=== PATIENT | female | born 1955 | race Caucasian/White ===

== ENCOUNTER 2021-09-13 18:42 | Inpatient (IN) | payer BC ==
[~2021-09-13] VITALS: Ht 172.7 cm; Wt 90.1 kg
[2021-09-13 19:50] VITALS: BP 97/49
[2021-09-13] MEDS ORDERED: ONDANSETRON PF 4 MG/2 ML VIAL. IVP PRN (20:15)
[2021-09-13] MEDS ORDERED: ACETAMINOPHEN 325 MG TABLET. PO PRN (20:15)
[2021-09-13] MEDS ORDERED: PIP/TAZO PER PHARMACY MC PRN (20:15)
[2021-09-13] MEDS ORDERED: VANCOMYCIN 2 GM in IV NORMAL SALINE 500ML BAG 500 ML IV ONE (21:00)
[2021-09-13] MEDS: PIPERACILLIN/TAZOBACTAM 4.5 GM in IV NORMAL SALINE 100ML 100 ML IV SCH (22:11)
[2021-09-13] MEDS: IV NORMAL SALINE 1000ML BAG 1,000 ML IV SCH (23:45)
[2021-09-13] MEDS ORDERED: METO25TA4 PO (23:53)
[2021-09-13] MEDS ORDERED: CALC500T30 PO (23:53)
[2021-09-13] MEDS ORDERED: CIME200T18 PO (23:53)
[2021-09-13] MEDS ORDERED: MAGN400C PO (23:53)
[2021-09-13] MEDS ORDERED: MULT-477 PO (23:53)
[2021-09-13] MEDS ORDERED: LEVO100T5 PO (23:53)
[2021-09-13] MEDS ORDERED: ASPI-630 PO (23:53)
[2021-09-14] VITALS (13 sets, daily range): BP systolic 85–111; BP diastolic 42–57
[2021-09-14] MEDS: MORPHINE SULFATE 2 MG/ML INJ. IVP PRN ×2 (00:54→20:49)
[2021-09-14] MEDS: VANCOMYCIN PER PHARMACY MC PRN ×2 (02:27→17:27)
--- NOTE | 2021-09-14 02:27 | NUR ---
Pharmacy Vancomycin Dosing Note S:Consulted to monitor and dose vancomycin started 09/13/21. O:YULIYA SELF is a 65 year old F with RUPTURED APPENDIX . Height: 5 feet, 8 inches Weight: 85.5 kg [place] Body Weight: 63.90 Adjusted Body Weight: 72.54 Dosing Weight: Other Antibiotics: ZOSYN 4.5 Q8H LABS: Last BUN: 16 Last Creatinine: 1.1 Creatinine Clearance: 59 mL/min Last WBC: 20.7 Last Procalcitonin: Tmax (past 24 hours): Microbiology: I/O: Drug Levels: Last level: on at Last dose given 09/13/21 at 2100 Vancomycin Dosing: Loading Dose: 2000 mg x1 Dosing Weight: Target Trough: 15-20 A: Based on: WT AND CRCL P: 1. Begin Vancomycin 1250 mg IV q12h 2. Follow up Trough level on 09/15/21 at 0830 3. Pharmacy will continue to monitor, follow and adjust therapy as needed. JOSEFINA GONZALEZ RPH, 09/14/21226 Signed: 09/14/21 at 227 by JOSEFINA GONZALEZ RPH PHA
[2021-09-14] MEDS: PIPERACILLIN/TAZOBACTAM 4.5 GM in IV NORMAL SALINE 100ML 100 ML IV SCH ×3 (06:24→20:50)
--- NOTE | 2021-09-14 08:42 | PDOC1 ---
History and Physical Date of Service: DOS: DATE: 09/14/21 TIME: 08:40 Chief Complaint: Problems: (1) Ruptured appendix Chief Complain: Abdominal pain History of Present Illness: HPI: Patient is a 65-year-old white female presented to outside emergency room yesterday due to 5 days worsening abdominal pain. Patient reports that Saturday she started feeling very gassy in the evening the next day abdominal pain eventually localized to the right lower quadrant. Also started having fever chills diarrhea during that time. Patient reports that she mostly slept Saturday. Pain was still present and sort of go away and come back intermittently. Reported that yesterday she also had a fair bit more vomiting. With that ongoing pain presented emergency room yesterday found to have a temperature of 102. CT scan performed showed findings indicative of ruptured appendicitis with early abscess formation. She received doses of cefepime and Flagyl there. With the findings on imaging is recommended she transferred here for surgical evaluation. I evaluated the patient this morning she was resting in bed and appears comfort able. Told me the pain was tolerable at this time. Overnight she received 2 doses of vancomycin and Zosyn. Plan to continue just Zosyn for now. She was reporting generalized unwell feeling and abdominal pain. Otherwise she is denying sort of headache vision changes chest pain shortness of breath dysuria joint pain. Past Medical/Surgical History: PMH/PSH: Hypothyroidism, rapid heart rate Allergies: Allergies: Coded Allergies: No Known Drug Allergies (Unverified , 09/13/21) Family History: Family History: Reviewed with patient endorse hypothyroidism in the family Social History: Social History: Denies alcohol tobacco or drug use Current Medications: Current Medications Current Medications Piperacillin Sod/ Tazobactam Sod (Zosyn Per Pharmacy) 1 each PRN DAILY PRN MC SEE COMMENTS; Start 09/13/21 at 20:15 Vancomycin HCl (Vanco Per Pharmacy) 1 each PRN DAILY PRN MC SEE COMMENTS Last administered on 09/14/21at 02:27; Start 09/13/21 at 20:15 Morphine Sulfate (Morphine Sulfate) 2 mg PRN Q2HR PRN IVP PAIN Last administered on 09/14/21at 00:54; Start 09/13/21 at 20:15 Ondansetron HCl (Zofran) 4 mg PRN Q6HRS PRN IVP NAUSEA/VOMITING; Start 09/13/21 at 20:15 Acetaminophen (Tylenol) 650 mg PRN Q6HRS PRN PO MILD PAIN / TEMP > 100.3'F; Start 09/13/21 at 20:15 Piperacillin Sod/ Tazobactam Sod 4.5 gm/Sodium Chloride 100 ml @ 200 mls/hr Q8HRS IV Last administered on 09/14/21at 06:24; Start 09/13/21 at 22:00 Vancomycin HCl 2 gm/Sodium Chloride 500 ml @ 250 mls/hr 1X ONCE IV Last administered on 09/13/21at 21:00; Start 09/13/21 at 21:00; Stop 09/13/21 at 22:59; Status DC Sodium Chloride 1,000 ml @ 75 mls/hr [id number] IV Last administered on 09/13/21at 23:45; Start 09/13/21 at 23:45 Influenza Virus Vaccine Quadrival (Flulaval Quad [id number] Syringe) 0.5 ml ONCE ONCE VAX IM ; Start 09/14/21 at 09:00; Stop 09/14/21 at 09:01 Vancomycin HCl 1.25 gm/Sodium Chloride 250 ml @ 167 mls/hr Q12H IV ; Start 09/14/21 at 09:00 Vancomycin HCl (Vancomycin Trough Level) 1 each 1X ONCE MC ; Start 09/15/21 at 08:30; Stop 09/15/21 at 08:31 Active Scripts Active Reported One Daily Multivit-Mineral Tab (Multivit-Min/Ferrous Sulfate) 4.5 Mg Tablet 4.5 Mg PO DAILY Magnesium (Magnesium Oxide) 400 Mg Capsule 1 Cap PO DAILY 30 Days Calcium (Calcium Carbonate) 500 Mg Tablet 600 Mg PO BID Aspirin 81 Mg Tab.chew 1 Tab PO DAILY Heartburn Relief (Cimetidine) 200 Mg Tablet 400 Mg PO BID Metoprolol Tartrate 25 Mg Tablet 0.5 Tab PO BID Levothyroxine Sodium 100 Mcg Tablet 1 Tab PO DAILY ROS: Review of Systems Review of System Unless noted in HPI 14 point review systems was negative Physical Exam: Vital Signs: Vital Signs Date Time Temp Pulse Resp B/P (MAP) Pulse Ox O2 Delivery O2 Flow Rate FiO2 09/14/21 03:00 73 17 85/47 (60) 96 Room Air 09/14/21 00:30 97.5 97.5 Physcial Exam: GEN: No apparent distress. Alert and oriented HEENT: Normal cephalic, atraumatic, external auditory canals are patent EYES: Extraocular muscles are intact MUSCULOSKELETAL: Well developed , well nourished, good range of motion ENDOCRINE: No thyromegaly was palpated LYMPHATICS: No cervical chain or axillary nodes were noted HEMATOPOIETIC: No bruising NECK: Supple, no JVD, no thyromegaly was noted LUNGS: Clear to auscultation in all lung myers without rhonchi or wheezing HEART: RRR, S1, S2 present. Peripheral pulses intact, no obvious murmurs noted ABDOMEN: Kind of diffusely tender overall more tender in lower quadrants. Normal bowel sounds. No apparent organomegaly EXTREMITIES: Without clubbing, cyanosis, or edema. Pedal pulses intact. NEUROLOGIC: Normal speech and tone. A&O x 3, moves all extremities, no obvious focal deficits PSYCHIATRIC: Normal affect, normal mood. Stable SKIN: No ulcerations or rashes, good skin turgor, no jaundice VASCULAR: Good capillary refill, neurovascular bundle appears to be intact Labs: Labs: Labs from outside hospital reviewed notable for leukocytosis 20.7, hemoglobin 12.9, creatinine 1.1 Assessment/Plan Assessment/Plan Acute appendicitis with perforation and peritonitis, abdominal pain, history of hypothyroidism and rapid heart rate -Plan history abdominal pain. Evaluated outside hospital yesterday showing rupt ured appendix. Sent here for intervention -Received cefepime Flagyl outside hospital. Given Vanco Zosyn here. We will continue Zosyn just for now -Planning to go for drain placement today. Please obtain cultures from abscess -Keep n.p.o. -Giving fluid bolus due to hypotension -Hold off on DVT prophylaxis for now -Home meds resumed as indicated I spent 20 minutes discussing advance care planning with this patient. Justifications for Admission Other Justification LAKESHA MENJIVAR MD Sep 14, 2021 08:42
[2021-09-14] MEDS ORDERED: IV NORMAL SALINE 1000ML BAG 1,000 ML IV ONE (08:45)
[2021-09-14 08:59] LABS: BASO % 0 % (0-3); EOS % 0 % (0-3); HEMATOCRIT 32.2 % (36.0-47.0); HEMOGLOBIN 10.6 g/dL (12.0-15.5); LYMPH # 0.5 x10^3/uL (1.0-4.8); LYMPH % 3 % (24-48); MEAN CORPUSCULAR HEMOGLOBIN 29 pg (25-35); MEAN CORPUSCULAR HGB CONC 33 g/dL (31-37); MEAN CORPUSCULAR VOLUME 90 fL (79-100); MONO # 0.9 x10^3/uL (0.0-1.1); MONO % 6 % (0-9); NEUT % 90 % (31-73); PLATELET COUNT 179 x10^3/uL (140-400); RED BLOOD COUNT 3.58 x10^6/uL (3.50-5.40); WHITE BLOOD COUNT 15.5 x10^3/uL (4.0-11.0)
[2021-09-14] MEDS ORDERED: FLU VACC QUAD 21-22 (6MOS+) PF 0.5 ML SYRINGE. VAX IM ONE (09:00)
[2021-09-14] MEDS: FAMOTIDINE 20 MG TABLET. PO SCH ×2 (09:00→20:49)
[2021-09-14] MEDS: LEVOTHYROXINE 100 MCG TABLET PO SCH (09:00)
[2021-09-14] MEDS ORDERED: VANCOMYCIN 1.25 GM in IV NORMAL SALINE 250ML 250 ML IV SCH (09:00)
[2021-09-14] MEDS ORDERED: LIDOCAINE WITH 8.4% SOD BICARB 3 ML DISP.SYRIN. ONE (09:39)
[2021-09-14] MEDS ORDERED: MIDAZOLAM HCL/PF 2 MG/2 ML VIAL. ONE (10:11)
[2021-09-14] MEDS ORDERED: fentaNYL PF VIAL 100 MCG/2 ML VIAL ONE (10:11)
[2021-09-14 10:19] LABS: % LYMPHS 6 % (24-48); % MONOS 4 % (0-10); % SEGS 90 % (35-66); PLT ESTIMATE ADEQUATE (ADEQUATE)
--- NOTE | 2021-09-14 10:24 | NUR ---
SW following. Discussed with RN, pt from home, room air, NPO. Surgery following - drain being placed today. RN advised no SW needs at this time. SW will continue to follow.
[2021-09-14] MEDS ORDERED: MIDAZOLAM HCL/PF 2 MG/2 ML VIAL. IV ONE (10:30)
[2021-09-14] MEDS ORDERED: fentaNYL PF VIAL 100 MCG/2 ML VIAL IV ONE (10:30)
[2021-09-14] MEDS ORDERED: LIDOCAINE WITH 8.4% SOD BICARB 3 ML DISP.SYRIN. IJ ONE (10:30)
[2021-09-14 12:09] LABS: CALCIUM 7.9 mg/dL (8.5-10.1); CREATININE 0.9 mg/dL (0.6-1.0); GFR 63.2; POTASSIUM 3.7 mmol/L (3.5-5.1)
--- NOTE | 2021-09-14 13:14 | PDOC2 ---
CONSULT Date of Consult Date of Consult DATE: 09/14/21 TIME: 13:09 Reason for Consult Reason for Consult: ruptured appendicitis Referring Physician Referring Physician: ER Identification/Chief Complaint Chief Complaint abd pain Source Source: Chart review, Patient History of Present Illness Reason for Visit: Abdominal pain, fatigue, ill feeling, loose stools since Saturday. was not improving. ER evaluation showed ruptured appendicitis with abscess Past Medical History Endocrine: Hypothyroidism Past Surgical History Past Surgical History: Hysterectomy Family History Family History: Other (noncontributory to current illness) Social History No ALCOHOL: none Drugs: None Lives: with Family Current Medications Current Medications Current Medications Piperacillin Sod/ Tazobactam Sod (Zosyn Per Pharmacy) 1 each PRN DAILY PRN MC SEE COMMENTS; Start 09/13/21 at 20:15 Vancomycin HCl (Vanco Per Pharmacy) 1 each PRN DAILY PRN MC SEE COMMENTS Last administered on 09/14/21at 02:27; Start 09/13/21 at 20:15 Morphine Sulfate (Morphine Sulfate) 2 mg PRN Q2HR PRN IVP PAIN Last administered on 09/14/21at 00:54; Start 09/13/21 at 20:15 Ondansetron HCl (Zofran) 4 mg PRN Q6HRS PRN IVP NAUSEA/VOMITING; Start 09/13/21 at 20:15 Acetaminophen (Tylenol) 650 mg PRN Q6HRS PRN PO MILD PAIN / TEMP > 100.3'F; Start 09/13/21 at 20:15 Piperacillin Sod/ Tazobactam Sod 4.5 gm/Sodium Chloride 100 ml @ 200 mls/hr Q8HRS IV Last administered on 09/14/21at 06:24; Start 09/13/21 at 22:00 Vancomycin HCl 2 gm/Sodium Chloride 500 ml @ 250 mls/hr 1X ONCE IV Last administered on 09/13/21at 21:00; Start 09/13/21 at 21:00; Stop 09/13/21 at 22:59; Status DC Sodium Chloride 1,000 ml @ 75 mls/hr [id number] IV Last administered on 09/13/21at 23:45; Start 09/13/21 at 23:45 Influenza Virus Vaccine Quadrival (Flulaval Quad [id number] Syringe) 0.5 ml ONCE ONCE VAX IM ; Start 09/14/21 at 09:00; Stop 09/14/21 at 09:01; Status DC Vancomycin HCl 1.25 gm/Sodium Chloride 250 ml @ 167 mls/hr Q12H IV Last administered on 09/14/21at 09:09; Start 09/14/21 at 09:00 Vancomycin HCl (Vancomycin Trough Level) 1 each 1X ONCE MC ; Start 09/15/21 at 08:30; Stop 09/15/21 at 08:31 Sodium Chloride 1,000 ml @ 1,000 mls/hr 1X ONCE IV Last administered on 09/14/21at 09:10; Start 09/14/21 at 08:45; Stop 09/14/21 at 09:44; Status DC Levothyroxine Sodium (Synthroid) 100 mcg DAILY07 PO ; Start 09/14/21 at 09:00 Famotidine (Pepcid) 20 mg BID PO ; Start 09/14/21 at 09:00 Lidocaine HCl (Buffered Lidocaine 1%) 3 ml STK-MED ONCE .ROUTE ; Start 09/14/21 at 09:39; Stop 09/14/21 at 09:39; Status DC Midazolam HCl (Versed) 2 mg STK-MED ONCE .ROUTE ; Start 09/14/21 at 10:11; Stop 09/14/21 at 10:11; Status DC Fentanyl Citrate (Fentanyl 2ml Vial) 100 mcg STK-MED ONCE .ROUTE ; Start 09/14/21 at 10:11; Stop 09/14/21 at 10:11; Status DC Lidocaine HCl (Buffered Lidocaine 1%) 3 ml 1X ONCE IJ Last administered on 09/14/21at 10:44; Start 09/14/21 at 10:30; Stop 09/14/21 at 10:31; Status DC Midazolam HCl (Versed) 2 mg 1X ONCE IV Last administered on 09/14/21at 10:43; Start 09/14/21 at 10:30; Stop 09/14/21 at 10:31; Status DC Fentanyl Citrate (Fentanyl 2ml Vial) 100 mcg 1X ONCE IV Last administered on 09/14/21at 10:43; Start 09/14/21 at 10:30; Stop 09/14/21 at 10:31; Status DC Active Scripts Active Reported One Daily Multivit-Mineral Tab (Multivit-Min/Ferrous Sulfate) 4.5 Mg Tablet 4.5 Mg PO DAILY Magnesium (Magnesium Oxide) 400 Mg Capsule 1 Cap PO DAILY 30 Days Calcium (Calcium Carbonate) 500 Mg Tablet 600 Mg PO BID Aspirin 81 Mg Tab.chew 1 Tab PO DAILY Heartburn Relief (Cimetidine) 200 Mg Tablet 400 Mg PO BID Metoprolol Tartrate 25 Mg Tablet 0.5 Tab PO BID Levothyroxine Sodium 100 Mcg Tablet 1 Tab PO DAILY Allergies Allergies: Coded Allergies: No Known Drug Allergies (Unverified , 09/13/21) ROS General: No: Chills, Fatigue PSYCHOLOGICAL ROS: No: Anxiety, Depression Eyes: No Blurry vision, No Double vision HEENT: No: Heacaches, Sore Throat Hematological and Lymphatic: No: Bleeding Problems, Blood Clots Respiratory: No: Cough, Shortness of breath Cardiovascular: No Chest Pain, No Palpitations Gastrointestinal: Yes Other (see hpi) Genitourinary: No Dysuria, No Hematuria Musculoskeletal: No Joint Pain, No Muscle Pain Neurological: No Impaired Coord/balance, No Numbness/Tingling Skin: No Pruritus, No Rash Physical Exam General: Alert, Oriented X3, Cooperative HEENT: Atraumatic, PERRLA Lungs: Clear to auscultation, Normal air movement Heart: Regular rate, Normal S1, Normal S2 Abdomen: Soft, Other (drain purulent ) Extremities: No clubbing, No cyanosis Skin: No rashes, No breakdown Neuro: Normal gait, Normal speech Psych/Mental Status: Mental status NL, Mood NL MUSCULOSKELETAL: No deformity, No swelling Vitals VITALS Vital Signs Date Time Temp Pulse Resp B/P (MAP) Pulse Ox O2 Delivery O2 Flow Rate FiO2 09/14/21 11:04 81 20 100 Nasal Cannula 2.0 09/14/21 11:02 96/53 (67) 09/14/21 07:00 97.4 97.4 Labs Labs Laboratory Tests Test 09/14/21 07:50 White Blood Count 15.5 x10^3/uL (4.0-11.0) Red Blood Count 3.58 x10^6/uL (3.50-5.40) Hemoglobin 10.6 g/dL (12.0-15.5) Hematocrit 32.2 % (36.0-47.0) Mean Corpuscular Volume 90 fL (79-100) Mean Corpuscular Hemoglobin 29 pg (25-35) Mean Corpuscular Hemoglobin Concent 33 g/dL (31-37) Red Cell Distribution Width 13.0 % (11.5-14.5) Platelet Count 179 x10^3/uL (140-400) Neutrophils (%) (Auto) 90 % (31-73) Lymphocytes (%) (Auto) 3 % (24-48) Monocytes (%) (Auto) 6 % (0-9) Eosinophils (%) (Auto) 0 % (0-3) Basophils (%) (Auto) 0 % (0-3) Neutrophils # (Auto) 14.0 x10^3/uL (1.8-7.7) Lymphocytes # (Auto) 0.5 x10^3/uL (1.0-4.8) Monocytes # (Auto) 0.9 x10^3/uL (0.0-1.1) Eosinophils # (Auto) 0.0 x10^3/uL (0.0-0.7) Basophils # (Auto) 0.0 x10^3/uL (0.0-0.2) Segmented Neutrophils % 90 % (35-66) Lymphocytes % 6 % (24-48) Monocytes % 4 % (0-10) Platelet Estimate Adequate (ADEQUATE) Sodium Level 140 mmol/L (136-145) Potassium Level 3.7 mmol/L (3.5-5.1) Chloride Level 107 mmol/L (98-107) Carbon Dioxide Level 22 mmol/L (21-32) Anion Gap 11 (6-14) Blood Urea Nitrogen 19 mg/dL (7-20) Creatinine 0.9 mg/dL (0.6-1.0) Estimated GFR (Cockcroft-Gault) 63.2 Glucose Level 84 mg/dL (70-99) Calcium Level 7.9 mg/dL (8.5-10.1) Laboratory Tests Test 09/14/21 07:50 White Blood Count 15.5 x10^3/uL (4.0-11.0) Red Blood Count 3.58 x10^6/uL (3.50-5.40) Hemoglobin 10.6 g/dL (12.0-15.5) Hematocrit 32.2 % (36.0-47.0) Mean Corpuscular Volume 90 fL (79-100) Mean Corpuscular Hemoglobin 29 pg (25-35) Mean Corpuscular Hemoglobin Concent 33 g/dL (31-37) Red Cell Distribution Width 13.0 % (11.5-14.5) Platelet Count 179 x10^3/uL (140-400) Neutrophils (%) (Auto) 90 % (31-73) Lymphocytes (%) (Auto) 3 % (24-48) Monocytes (%) (Auto) 6 % (0-9) Eosinophils (%) (Auto) 0 % (0-3) Basophils (%) (Auto) 0 % (0-3) Neutrophils # (Auto) 14.0 x10^3/uL (1.8-7.7) Lymphocytes # (Auto) 0.5 x10^3/uL (1.0-4.8) Monocytes # (Auto) 0.9 x10^3/uL (0.0-1.1) Eosinophils # (Auto) 0.0 x10^3/uL (0.0-0.7) Basophils # (Auto) 0.0 x10^3/uL (0.0-0.2) Segmented Neutrophils % 90 % (35-66) Lymphocytes % 6 % (24-48) Monocytes % 4 % (0-10) Platelet Estimate Adequate (ADEQUATE) Sodium Level 140 mmol/L (136-145) Potassium Level 3.7 mmol/L (3.5-5.1) Chloride Level 107 mmol/L (98-107) Carbon Dioxide Level 22 mmol/L (21-32) Anion Gap 11 (6-14) Blood Urea Nitrogen 19 mg/dL (7-20) Creatinine 0.9 mg/dL (0.6-1.0) Estimated GFR (Cockcroft-Gault) 63.2 Glucose Level 84 mg/dL (70-99) Calcium Level 7.9 mg/dL (8.5-10.1) Assessment/Plan Assessment/Plan perforated appendicitis with abscess drain, abx would plan lap appy 6 weeks NELA MARIN [employer] Sep 14, 2021 13:14
[2021-09-14] MEDS: IV NORMAL SALINE 1000ML BAG 1,000 ML IV SCH (18:31)
[2021-09-15 03:20] VITALS: BP 107/56
[2021-09-15] MEDS: IV NORMAL SALINE 1000ML BAG 1,000 ML IV SCH ×2 (05:30→15:45)
[2021-09-15] MEDS: PIPERACILLIN/TAZOBACTAM 4.5 GM in IV NORMAL SALINE 100ML 100 ML IV SCH ×3 (05:32→21:03)
[2021-09-15 07:00] VITALS: BP 106/52
[2021-09-15] MEDS: LEVOTHYROXINE 100 MCG TABLET PO SCH (08:00)
[2021-09-15] MEDS: FAMOTIDINE 20 MG TABLET. PO SCH ×2 (08:00→21:02)
--- NOTE | 2021-09-15 10:52 | NUR ---
SW following. Discussed with RN, pt from home, room air, clear liquid diet. Drain still in place. RN advised no SW needs at this time. SW will continue to follow.
[2021-09-15 11:00] VITALS: BP 114/55
[2021-09-15] MEDS: MAGNESIUM OXIDE 400 MG TABLET PO SCH (11:12)
[2021-09-15] MEDS: METOPROLOL TART IMMED RELEASE 25 MG TABLET. PO SCH ×2 (11:12→21:03)
--- NOTE | 2021-09-15 11:32 | PDOC ---
SURGICAL PROGRESS NOTE DATE: 09/15/21 TIME: 11:30 Subjective Patient doing quite well no real complaints Vital Signs Vital Signs Date Time Temp Pulse Resp B/P (MAP) Pulse Ox O2 Delivery O2 Flow Rate FiO2 09/15/21 11:12 95 106/52 09/15/21 08:04 Room Air 09/15/21 07:00 98.7 18 97 98.7 09/14/21 11:04 2.0 I&O Intake and Output 09/15/21 07:00 Intake Total 3123 ml Balance 3123 ml Intake Oral 360 ml Blood Product IV Normal Saline Flush 2763 ml # Voids 5 # Bowel Movements 1 PATIENT HAS A PERRY: No General: Alert, Oriented X3, Cooperative, mild distress Abdomen: Normal bowel sounds, Soft, Other (Mildly tender around the drain site drain with purulent cloudy drainage) Labs Laboratory Tests Test 09/14/21 07:50 White Blood Count 15.5 x10^3/uL (4.0-11.0) Red Blood Count 3.58 x10^6/uL (3.50-5.40) Hemoglobin 10.6 g/dL (12.0-15.5) Hematocrit 32.2 % (36.0-47.0) Mean Corpuscular Volume 90 fL (79-100) Mean Corpuscular Hemoglobin 29 pg (25-35) Mean Corpuscular Hemoglobin Concent 33 g/dL (31-37) Red Cell Distribution Width 13.0 % (11.5-14.5) Platelet Count 179 x10^3/uL (140-400) Neutrophils (%) (Auto) 90 % (31-73) Lymphocytes (%) (Auto) 3 % (24-48) Monocytes (%) (Auto) 6 % (0-9) Eosinophils (%) (Auto) 0 % (0-3) Basophils (%) (Auto) 0 % (0-3) Neutrophils # (Auto) 14.0 x10^3/uL (1.8-7.7) Lymphocytes # (Auto) 0.5 x10^3/uL (1.0-4.8) Monocytes # (Auto) 0.9 x10^3/uL (0.0-1.1) Eosinophils # (Auto) 0.0 x10^3/uL (0.0-0.7) Basophils # (Auto) 0.0 x10^3/uL (0.0-0.2) Segmented Neutrophils % 90 % (35-66) Lymphocytes % 6 % (24-48) Monocytes % 4 % (0-10) Platelet Estimate Adequate (ADEQUATE) Sodium Level 140 mmol/L (136-145) Potassium Level 3.7 mmol/L (3.5-5.1) Chloride Level 107 mmol/L (98-107) Carbon Dioxide Level 22 mmol/L (21-32) Anion Gap 11 (6-14) Blood Urea Nitrogen 19 mg/dL (7-20) Creatinine 0.9 mg/dL (0.6-1.0) Estimated GFR (Cockcroft-Gault) 63.2 Glucose Level 84 mg/dL (70-99) Calcium Level 7.9 mg/dL (8.5-10.1) Assessment/Plan Perforated appendix with abscess status post interventional radiology drain recommend continue drain with repeat CT scan on Saturday Justicifation of Admission Dx: Justifications for Admission: Justification of Admission Dx: N/A JAE FLOWER MD Sep 15, 2021 11:32
[2021-09-15] MEDS: ENOXAPARIN 40 MG/0.4 ML SYRINGE. SQ SCH (12:02)
[2021-09-15] MEDS: MORPHINE SULFATE 2 MG/ML INJ. IVP PRN (13:53)
[2021-09-15 15:00] VITALS: BP 110/56
[2021-09-15 19:00] VITALS: BP 119/48
--- NOTE | 2021-09-15 20:19 | PDOC ---
[facility] [facility] PROGRESS NOTE Date of Service DOS: DATE: 09/15/21 TIME: 20:17 Chief Complaint Chief Complaint Assessment/Plan Acute appendicitis with perforation and peritonitis, abdominal pain, history of hypothyroidism and rapid heart rate -Plan history abdominal pain. Evaluated outside hospital yesterday showing ruptured appendix. Sent here for intervention -Received cefepime Flagyl outside hospital. Given Vanco Zosyn here. We will continue Zosyn just for now -POD 1 from drain placement -Diet as tolerated -Hold off on DVT prophylaxis for now encourage patient to ambulate as she could -Home meds resumed as indicated History of Present Illness History of Present Illness Patient is a 65-year-old white female presented to outside emergency room yesterday due to 5 days worsening abdominal pain. Patient reports that Saturday she started feeling very gassy in the evening the next day abdominal pain e ventually localized to the right lower quadrant. Also started having fever chills diarrhea during that time. Patient reports that she mostly slept Saturday. Pain was still present and sort of go away and come back intermittently. Reported that yesterday she also had a fair bit more vomiting. With that ongoing pain presented emergency room yesterday found to have a temperature of 102. CT scan performed showed findings indicative of ruptured appendicitis with early abscess formation. She received doses of cefepime and Flagyl there. With the findings on imaging is recommended she transferred here for surgical evaluation. I evaluated the patient this morning she was resting in bed and appears comfortable. Told me the pain was tolerable at this time. Overnight she received 2 doses of vancomycin and Zosyn. Plan to continue just Zosyn for now. She was reporting generalized unwell feeling and abdominal pain. Otherwise she is denying sort of headache vision changes chest pain shortness of breath dysuria joint pain 09/15/21 Evaluated examined at bedside. Underwent drain placement yesterday and tolerated well. When I evaluated this morning she said she was doing well pain was well controlled. She was tolerating diet. Continuing IV antibiotics for now. Will await culture results. Planning for repeat CT scan on Saturday per surgery. Plan of care discussed with bedside RN. Vitals/I&O Vitals/I&O: Vital Signs Date Time Temp Pulse Resp B/P (MAP) Pulse Ox O2 Delivery O2 Flow Rate FiO2 09/15/21 15:00 97.6 85 17 110/56 (74) 99 Room Air 97.6 09/14/21 11:04 2.0 I & O 09/14/21 09/14/21 09/15/21 15:00 23:00 07:00 Intake Total 3123 ml Balance 3123 ml Physical Exam General: Alert, Oriented X3, Cooperative, mild distress Heart: Regular rate, Normal S1, Normal S2 Abdomen: Normal bowel sounds, Soft, Other (Mildly tender around the drain site drain with purulent cloudy drainage) Extremities: No clubbing, No cyanosis Skin: No rashes, No breakdown Comment Review of Relevant I have reviewed the following items marita (where applicable) has been applied. Medications: Current Medications Medications (Trade) Dose Ordered Sig/Andrea Route PRN Reason Start Time Stop Time Status Last Admin Dose Admin Metoprolol Tartrate (Lopressor) 12.5 mg BID PO 09/15/21 11:00 09/15/21 11:12 Magnesium Oxide (Magnesium Oxide) 400 mg DAILY PO 09/15/21 11:00 09/15/21 11:12 Enoxaparin Sodium (Lovenox 40mg Syringe) 40 mg Q24H SQ 09/15/21 11:00 09/15/21 12:02 Justifications for Admission Other Justification LAKESHA MENJIVAR MD Sep 15, 2021 20:19
[2021-09-15] MEDS: LACTOBACILLUS RHAMNOSUS GG 1 CAPSULE. PO SCH (21:02)
[2021-09-15 23:46] VITALS: BP 106/53
[2021-09-16 03:59] VITALS: BP 125/68
[2021-09-16] MEDS: IV NORMAL SALINE 1000ML BAG 1,000 ML IV SCH (05:55)
[2021-09-16] MEDS: PIPERACILLIN/TAZOBACTAM 4.5 GM in IV NORMAL SALINE 100ML 100 ML IV SCH ×3 (05:55→21:24)
[2021-09-16 07:00] VITALS: BP 121/66
[2021-09-16] MEDS: LEVOTHYROXINE 100 MCG TABLET PO SCH (07:33)
--- NOTE | 2021-09-16 08:33 | PDOC ---
NELA MARIN APRN 09/16/21 0833: SURGICAL PROGRESS NOTE DATE: 09/16/21 TIME: 08:33 Subjective loose stools overall feels better Vital Signs Vital Signs Date Time Temp Pulse Resp B/P (MAP) Pulse Ox O2 Delivery O2 Flow Rate FiO2 09/16/21 03:59 97.5 95 18 125/68 (87) 98 Room Air 97.5 I&O Intake and Output 09/16/21 07:00 Intake Total 880 ml Balance 880 ml Intake Oral 880 ml # Voids 3 General: Alert, Oriented X3, Cooperative Abdomen: Soft, Other (ND, NTTP, scant output from drain ) Assessment/Plan advance diet continue abx, drain will plan CT saturday Justicifation of Admission Dx: Justifications for Admission: Justification of Admission Dx: N/A JAE FLOWER MD 09/16/21 1034: SURGICAL PROGRESS NOTE Assessment/Plan Agree with Abiodun assessment and plan NELA MARIN APRN Sep 16, 2021 08:33 JAE FLOWER MD Sep 16, 2021 10:34
[2021-09-16] MEDS: METOPROLOL TART IMMED RELEASE 25 MG TABLET. PO SCH ×2 (09:46→21:24)
[2021-09-16] MEDS: LACTOBACILLUS RHAMNOSUS GG 1 CAPSULE. PO SCH ×2 (09:46→21:23)
[2021-09-16] MEDS: FAMOTIDINE 20 MG TABLET. PO SCH ×2 (09:46→21:24)
[2021-09-16] MEDS: MAGNESIUM OXIDE 400 MG TABLET PO SCH (09:46)
--- NOTE | 2021-09-16 09:48 | NUR ---
Nurse's note: The patient refused lovenox, stated that she spoke to Dr. Minaya yesterday.
[2021-09-16] MEDS: ENOXAPARIN 40 MG/0.4 ML SYRINGE. SQ SCH (09:51)
--- NOTE | 2021-09-16 10:07 | PDOC ---
[facility] PROGRESS NOTE Date of Service DOS: DATE: 09/16/21 TIME: 10:06 Chief Complaint Chief Complaint Assessment/Plan Acute appendicitis with perforation and peritonitis, abdominal pain, history of hypothyroidism and rapid heart rate -Plan history abdominal pain. Evaluated outside hospital yesterday showing ruptured appendix. Sent here for intervention -Received cefepime Flagyl outside hospital. Given Vanco Zosyn here. We will continue Zosyn just for now -POD 1 from drain placement -Diet as tolerated -Hold off on DVT prophylaxis for now encourage patient to ambulate as she could -Home meds resumed as indicated History of Present Illness History of Present Illness Patient is a 65-year-old white female presented to outside emergency room yesterday due to 5 days worsening abdominal pain. Patient reports that Saturday she started feeling very gassy in the evening the next day abdominal pain e ventually localized to the right lower quadrant. Also started having fever chills diarrhea during that time. Patient reports that she mostly slept Saturday. Pain was still present and sort of go away and come back intermittently. Reported that yesterday she also had a fair bit more vomiting. With that ongoing pain presented emergency room yesterday found to have a temperature of 102. CT scan performed showed findings indicative of ruptured appendicitis with early abscess formation. She received doses of cefepime and Flagyl there. With the findings on imaging is recommended she transferred here for surgical evaluation. I evaluated the patient this morning she was resting in bed and appears comfortable. Told me the pain was tolerable at this time. Overnight she received 2 doses of vancomycin and Zosyn. Plan to continue just Zosyn for now. She was reporting generalized unwell feeling and abdominal pain. Otherwise she is denying sort of headache vision changes chest pain shortness of breath dysuria joint pain 09/15/21 Evaluated examined at bedside. Underwent drain placement yesterday and tolerated well. When I evaluated this morning she said she was doing well pain was well controlled. She was tolerating diet. Continuing IV antibiotics for now. Will await culture results. Planning for repeat CT scan on Saturday per surgery. Plan of care discussed with bedside RN. 09/16 Patient evaluated and examined at bedside. She is doing well/actually feeling quite a bit better overall. Output from drain definitely slowing down. Continue antibiotics. Planning for CT repeat Saturday. Stop fluids patient said she is feeling little swollen. I did tell her she does not exactly need DVT prophylaxis long as she is getting up and moving around every couple of hours. Vitals/I&O Vitals/I&O: Vital Signs Date Time Temp Pulse Resp B/P (MAP) Pulse Ox O2 Delivery O2 Flow Rate FiO2 09/16/21 09:46 107 121/66 09/16/21 07:00 97.9 16 97 Room Air 97.9 I & O 09/15/21 09/15/21 09/16/21 15:00 23:00 07:00 Intake Total 540 ml 340 ml Balance 540 ml 340 ml Physical Exam General: Alert, Oriented X3, Cooperative Heart: Regular rate, Normal S1, Normal S2 Abdomen: Soft, Other (ND, NTTP, scant output from drain ) Extremities: No clubbing, No cyanosis Skin: No rashes, No breakdown Comment Review of Relevant I have reviewed the following items marita (where applicable) has been applied. Medications: Current Medications Medications (Trade) Dose Ordered Sig/Andrea Route PRN Reason Start Time Stop Time Status Last Admin Dose Admin Metoprolol Tartrate (Lopressor) 12.5 mg BID PO 09/15/21 11:00 09/16/21 09:46 Magnesium Oxide (Magnesium Oxide) 400 mg DAILY PO 09/15/21 11:00 09/16/21 09:46 Enoxaparin Sodium (Lovenox 40mg Syringe) 40 mg Q24H SQ 09/15/21 11:00 09/16/21 09:52 DC 09/15/21 12:02 Lactobacillus Rhamnosus (Culturelle) 1 cap BID PO 09/15/21 21:00 09/16/21 09:46 Justifications for Admission Other Justification LAKESHA MENJIVAR MD Sep 16, 2021 10:07
[2021-09-16 11:00] VITALS: BP 119/75
[2021-09-16 15:00] VITALS: BP 119/62
[2021-09-16 19:00] VITALS: BP 127/64
[2021-09-16 23:00] VITALS: BP 125/62
[2021-09-17 03:00] VITALS: BP 130/61
[2021-09-17] MEDS: PIPERACILLIN/TAZOBACTAM 4.5 GM in IV NORMAL SALINE 100ML 100 ML IV SCH ×3 (05:55→21:53)
[2021-09-17] MEDS: LEVOTHYROXINE 100 MCG TABLET PO SCH (05:56)
[2021-09-17 07:00] VITALS: BP 125/67
[2021-09-17 07:41] LABS: BASO % 0 % (0-3); EOS % 1 % (0-3); HEMATOCRIT 30.6 % (36.0-47.0); HEMOGLOBIN 10.2 g/dL (12.0-15.5); LYMPH % 11 % (24-48); MEAN CORPUSCULAR HEMOGLOBIN 30 pg (25-35); MEAN CORPUSCULAR HGB CONC 33 g/dL (31-37); MEAN CORPUSCULAR VOLUME 89 fL (79-100); MONO % 10 % (0-9); NEUT # 7.6 x10^3/uL (1.8-7.7); NEUT % 78 % (31-73); PLATELET COUNT 287 x10^3/uL (140-400); RED BLOOD COUNT 3.45 x10^6/uL (3.50-5.40); RED CELL DISTRIBUTION WIDTH 13.7 % (11.5-14.5); WHITE BLOOD COUNT 9.7 x10^3/uL (4.0-11.0)
[2021-09-17 08:26] LABS: CALCIUM 7.9 mg/dL (8.5-10.1); CREATININE 0.9 mg/dL (0.6-1.0); GFR 63.2
[2021-09-17 08:36] LABS: POTASSIUM 2.8 mmol/L (3.5-5.1)
--- NOTE | 2021-09-17 08:50 | PDOC ---
NELA MARIN REGULATORY SCIENTIST 09/17/21 0850: SURGICAL PROGRESS NOTE DATE: 09/17/21 TIME: 08:47 Subjective ready to go home no diarrhea currently tolerating diet Vital Signs Vital Signs Date Time Temp Pulse Resp B/P (MAP) Pulse Ox O2 Delivery O2 Flow Rate FiO2 09/17/21 03:00 99.2 81 17 130/61 (84) 97 Room Air 2.0 99.2 I&O Intake and Output 09/17/21 07:00 Intake Total 290 ml Output Total 151 ml Balance 139 ml Intake Oral 90 ml IV Total 200 ml Output Urine Total 150 ml Urine/Stool Mix 1 ml # Voids 1 General: Alert, Oriented X3, Cooperative Abdomen: Soft, Other (drain in place) Labs Laboratory Tests Test 09/17/21 06:30 White Blood Count 9.7 x10^3/uL (4.0-11.0) Red Blood Count 3.45 x10^6/uL (3.50-5.40) Hemoglobin 10.2 g/dL (12.0-15.5) Hematocrit 30.6 % (36.0-47.0) Mean Corpuscular Volume 89 fL (79-100) Mean Corpuscular Hemoglobin 30 pg (25-35) Mean Corpuscular Hemoglobin Concent 33 g/dL (31-37) Red Cell Distribution Width 13.7 % (11.5-14.5) Platelet Count 287 x10^3/uL (140-400) Neutrophils (%) (Auto) 78 % (31-73) Lymphocytes (%) (Auto) 11 % (24-48) Monocytes (%) (Auto) 10 % (0-9) Eosinophils (%) (Auto) 1 % (0-3) Basophils (%) (Auto) 0 % (0-3) Neutrophils # (Auto) 7.6 x10^3/uL (1.8-7.7) Lymphocytes # (Auto) 1.0 x10^3/uL (1.0-4.8) Monocytes # (Auto) 1.0 x10^3/uL (0.0-1.1) Eosinophils # (Auto) 0.0 x10^3/uL (0.0-0.7) Basophils # (Auto) 0.0 x10^3/uL (0.0-0.2) Sodium Level 142 mmol/L (136-145) Potassium Level 2.8 mmol/L (3.5-5.1) Chloride Level 107 mmol/L (98-107) Carbon Dioxide Level 25 mmol/L (21-32) Anion Gap 10 (6-14) Blood Urea Nitrogen 6 mg/dL (7-20) Creatinine 0.9 mg/dL (0.6-1.0) Estimated GFR (Cockcroft-Gault) 63.2 Glucose Level 83 mg/dL (70-99) Calcium Level 7.9 mg/dL (8.5-10.1) Laboratory Tests Test 09/17/21 06:30 White Blood Count 9.7 x10^3/uL (4.0-11.0) Red Blood Count 3.45 x10^6/uL (3.50-5.40) Hemoglobin 10.2 g/dL (12.0-15.5) Hematocrit 30.6 % (36.0-47.0) Mean Corpuscular Volume 89 fL (79-100) Mean Corpuscular Hemoglobin 30 pg (25-35) Mean Corpuscular Hemoglobin Concent 33 g/dL (31-37) Red Cell Distribution Width 13.7 % (11.5-14.5) Platelet Count 287 x10^3/uL (140-400) Neutrophils (%) (Auto) 78 % (31-73) Lymphocytes (%) (Auto) 11 % (24-48) Monocytes (%) (Auto) 10 % (0-9) Eosinophils (%) (Auto) 1 % (0-3) Basophils (%) (Auto) 0 % (0-3) Neutrophils # (Auto) 7.6 x10^3/uL (1.8-7.7) Lymphocytes # (Auto) 1.0 x10^3/uL (1.0-4.8) Monocytes # (Auto) 1.0 x10^3/uL (0.0-1.1) Eosinophils # (Auto) 0.0 x10^3/uL (0.0-0.7) Basophils # (Auto) 0.0 x10^3/uL (0.0-0.2) Sodium Level 142 mmol/L (136-145) Potassium Level 2.8 mmol/L (3.5-5.1) Chloride Level 107 mmol/L (98-107) Carbon Dioxide Level 25 mmol/L (21-32) Anion Gap 10 (6-14) Blood Urea Nitrogen 6 mg/dL (7-20) Creatinine 0.9 mg/dL (0.6-1.0) Estimated GFR (Cockcroft-Gault) 63.2 Glucose Level 83 mg/dL (70-99) Calcium Level 7.9 mg/dL (8.5-10.1) Assessment/Plan CT in AM--if abscess resolved dc drain and plan home with oral abx, FU for appendectomy Justicifation of Admission Dx: Justifications for Admission: Justification of Admission Dx: N/A JAE FLOWER MD 09/17/21 1033: SURGICAL PROGRESS NOTE Assessment/Plan Agree with Thalia's assessment and plan NELA MARIN APRN Sep 17, 2021 08:50 JAE FLOWER MD Sep 17, 2021 10:33
[2021-09-17 11:00] VITALS: BP 118/71
[2021-09-17] MEDS: MAGNESIUM OXIDE 400 MG TABLET PO SCH (12:00)
[2021-09-17] MEDS: LACTOBACILLUS RHAMNOSUS GG 1 CAPSULE. PO SCH ×2 (12:00→21:27)
[2021-09-17] MEDS: FAMOTIDINE 20 MG TABLET. PO SCH ×2 (12:01→21:28)
[2021-09-17] MEDS: POTASSIUM CHLORIDE 20 MEQ TABLET.ER. PO SCH ×2 (12:01→13:05)
[2021-09-17] MEDS: METOPROLOL TART IMMED RELEASE 25 MG TABLET. PO SCH ×2 (12:01→21:28)
--- NOTE | 2021-09-17 12:31 | PDOC ---
[facility] PROGRESS NOTE Date of Service DOS: DATE: 09/17/21 TIME: 12:29 Chief Complaint Chief Complaint Assessment/Plan Acute appendicitis with perforation and peritonitis, abdominal pain, history of hypothyroidism and rapid heart rate -Plan history abdominal pain. Evaluated outside hospital yesterday showing ruptured appendix. Sent here for intervention -Received cefepime Flagyl outside hospital. Given Vanco Zosyn here. We will continue Zosyn just for now -POD 1 from drain placement -Diet as tolerated -Hold off on DVT prophylaxis for now encourage patient to ambulate as she could -Home meds resumed as indicated History of Present Illness History of Present Illness Patient is a 65-year-old white female presented to outside emergency room yesterday due to 5 days worsening abdominal pain. Patient reports that Saturday she started feeling very gassy in the evening the next day abdominal pain e ventually localized to the right lower quadrant. Also started having fever chills diarrhea during that time. Patient reports that she mostly slept Saturday. Pain was still present and sort of go away and come back intermittently. Reported that yesterday she also had a fair bit more vomiting. With that ongoing pain presented emergency room yesterday found to have a temperature of 102. CT scan performed showed findings indicative of ruptured appendicitis with early abscess formation. She received doses of cefepime and Flagyl there. With the findings on imaging is recommended she transferred here for surgical evaluation. I evaluated the patient this morning she was resting in bed and appears comfortable. Told me the pain was tolerable at this time. Overnight she received 2 doses of vancomycin and Zosyn. Plan to continue just Zosyn for now. She was reporting generalized unwell feeling and abdominal pain. Otherwise she is denying sort of headache vision changes chest pain shortness of breath dysuria joint pain 09/15/21 Evaluated examined at bedside. Underwent drain placement yesterday and tolerated well. When I evaluated this morning she said she was doing well pain was well controlled. She was tolerating diet. Continuing IV antibiotics for now. Will await culture results. Planning for repeat CT scan on Saturday per surgery. Plan of care discussed with bedside RN. 09/16 Patient evaluated and examined at bedside. She is doing well/actually feeling quite a bit better overall. Output from drain definitely slowing down. Continue antibiotics. Planning for CT repeat Saturday. Stop fluids patient said she is feeling little swollen. I did tell her she does not exactly need DVT prophylaxis long as she is getting up and moving around every couple of hours. 09/17 Patient evaluated and examined at bedside. She was doing well, no loose stool. No pain to complain. Repeating CT scan in the morning to see if drain can be removed. If can remove patient will likely discharge home tomorrow. Will need to be switched to oral antibiotics prior. Vitals/I&O Vitals/I&O: Vital Signs Date Time Temp Pulse Resp B/P (MAP) Pulse Ox O2 Delivery O2 Flow Rate FiO2 09/17/21 12:01 93 125/67 09/17/21 11:00 98.0 16 98 Room Air 98.0 09/17/21 03:00 2.0 I & O 09/16/21 09/16/21 09/17/21 15:00 23:00 07:00 Intake Total 100 ml 190 ml Output Total 150 ml 1 ml Balance -150 ml 99 ml 190 ml Physical Exam General: Alert, Oriented X3, Cooperative Heart: Regular rate, Normal S1, Normal S2 Abdomen: Soft, Other (drain in place) Extremities: No clubbing, No cyanosis Skin: No rashes, No breakdown Labs Labs: Laboratory Tests Test 09/17/21 06:30 White Blood Count 9.7 x10^3/uL (4.0-11.0) Red Blood Count 3.45 x10^6/uL (3.50-5.40) Hemoglobin 10.2 g/dL (12.0-15.5) Hematocrit 30.6 % (36.0-47.0) Mean Corpuscular Volume 89 fL (79-100) Mean Corpuscular Hemoglobin 30 pg (25-35) Mean Corpuscular Hemoglobin Concent 33 g/dL (31-37) Red Cell Distribution Width 13.7 % (11.5-14.5) Platelet Count 287 x10^3/uL (140-400) Neutrophils (%) (Auto) 78 % (31-73) Lymphocytes (%) (Auto) 11 % (24-48) Monocytes (%) (Auto) 10 % (0-9) Eosinophils (%) (Auto) 1 % (0-3) Basophils (%) (Auto) 0 % (0-3) Neutrophils # (Auto) 7.6 x10^3/uL (1.8-7.7) Lymphocytes # (Auto) 1.0 x10^3/uL (1.0-4.8) Monocytes # (Auto) 1.0 x10^3/uL (0.0-1.1) Eosinophils # (Auto) 0.0 x10^3/uL (0.0-0.7) Basophils # (Auto) 0.0 x10^3/uL (0.0-0.2) Sodium Level 142 mmol/L (136-145) Potassium Level 2.8 mmol/L (3.5-5.1) Chloride Level 107 mmol/L (98-107) Carbon Dioxide Level 25 mmol/L (21-32) Anion Gap 10 (6-14) Blood Urea Nitrogen 6 mg/dL (7-20) Creatinine 0.9 mg/dL (0.6-1.0) Estimated GFR (Cockcroft-Gault) 63.2 Glucose Level 83 mg/dL (70-99) Calcium Level 7.9 mg/dL (8.5-10.1) Comment Review of Relevant I have reviewed the following items marita (where applicable) has been applied. Medications: Current Medications Medications (Trade) Dose Ordered Sig/Andrea Route PRN Reason Start Time Stop Time Status Last Admin Dose Admin Potassium Chloride (Klor-Con) 40 meq QID PO 09/17/21 09:30 09/17/21 13:01 09/17/21 12:01 Justifications for Admission Other Justification LAKESHA MENJIVAR MD Sep 17, 2021 12:31
[2021-09-17] MEDS ORDERED: hydrOXYzine 25 MG TABLET PO PRN (14:45)
[2021-09-17 15:00] VITALS: BP 116/69
[2021-09-17] MEDS: HYDROCORTISONE 1% TOPICAL CREAM 30GM TUBE. TP SCH ×2 (18:01→22:06)
[2021-09-17 19:00] VITALS: BP 117/70
[2021-09-17 23:00] VITALS: BP 120/67
[2021-09-18 03:00] VITALS: BP 103/60
[2021-09-18] MEDS: PIPERACILLIN/TAZOBACTAM 4.5 GM in IV NORMAL SALINE 100ML 100 ML IV SCH ×2 (05:49→14:01)
[2021-09-18] MEDS: LEVOTHYROXINE 100 MCG TABLET PO SCH (05:53)
[2021-09-18 07:00] VITALS: BP 126/64
[2021-09-18] MEDS ORDERED: IOHEXOL 300 MG/ML 100ML VIAL. IV ONE (07:30)
[2021-09-18] MEDS ORDERED: IOHEXOL 240 MG/ML 50ML VIAL. PO ONE (07:30)
[2021-09-18] MEDS: HYDROCORTISONE 1% TOPICAL CREAM 30GM TUBE. TP SCH ×2 (09:00→14:04)
[2021-09-18] MEDS: LACTOBACILLUS RHAMNOSUS GG 1 CAPSULE. PO SCH (09:18)
[2021-09-18] MEDS: FAMOTIDINE 20 MG TABLET. PO SCH (09:18)
[2021-09-18] MEDS: MAGNESIUM OXIDE 400 MG TABLET PO SCH (09:18)
[2021-09-18] MEDS: METOPROLOL TART IMMED RELEASE 25 MG TABLET. PO SCH (09:19)
--- NOTE | 2021-09-18 09:23 | RAD ---
EXAM: Abdomen and pelvis CT with intravenous contrast. HISTORY: Abscess. TECHNIQUE: Computed tomographic images of the abdomen and pelvis were obtained following the administ ration of intravenous contrast. Multiplanar reformatting was performed. *One or more of the following individualized dose reduction techniques were utilized for this examina tion: 1. Automated exposure control. 2. Adjustment of the mA and/or kV according to patient size. 3. Use of iterative reconstruction technique. COMPARISON: 09/13/2021 and 09/14/2021. FINDINGS: Evaluation of the lower thorax demonstrates new small bilateral pleural effusions. There is bilateral basilar and posterior dependent atelectasis. No consolidated infiltrate is seen. There is stable trace pericardial fluid. There is mild periportal edema, likely due to bolus patient hydration. There is a 7 mm hypodense lesi on within the right hepatic lobe which is too small to characterize. There is a 1.7 cm hypodense lesi on along the periphery of the inferior right hepatic lobe which demonstrate attenuation greater than fluid. The gallbladder, pancreas, stomach and adrenal glands are unremarkable. The spleen is upper no rmal in size. There is mild left renal atrophy. There is left renal caliectasis. There is a 2 mm nonobstructing sto ne within the inferior left kidney. There is no mag hydronephrosis. The bladder is empty. The uteru s is absent. No adnexal lesion is seen. There is a right lower quadrant percutaneous drainage catheter with surrounding inflammatory strandin g and a few foci of extraluminal gas. The previously demonstrated complex gas and fluid collection in this location has resolved. No residual drainable collection is seen. There is wall thickening invol ving the adjacent cecum. There is a tubular fluid-filled structure extending from the cecum and this location which may be due to residual appendix status post rupture. There is no bowel obstruction. There is stranding and trace fluid within the dependent portions of th e pelvis and presacral space likely due to the aforementioned findings within the right lower quadran t. There are enlarged pericecal lymph nodes which are likely reactive. The aorta is normal in caliber . There is degenerative change throughout the spine. There are benign osseous hemangiomas. There is n o acute osseous finding. IMPRESSION: 1. Interval placement of a percutaneous drainage catheter within the right lower quadrant. The previo usly demonstrated complex gas and fluid collection in this location is no longer seen. There is resid ual surrounding inflammatory stranding and a few foci of extraluminal gas. There is also an adjacent fluid-filled tubular structure which may be due to a portion of a ruptured appendix. 2. Cecal wall thickening, likely reactive in etiology. The possibility of superimposed cecitis is not excluded. 3. Pericecal lymphadenopathy, likely reactive in etiology. 4. Hypodense lesions within the liver measuring up to 1.7 cm. These are difficult to characterize giv en the phase of contrast administration. In the absence of known malignancy, the larger lesion may re present a hemangioma. This may be visible sonographically. Alternatively, a liver protocol MRI can be performed to confirm benignity. 5. Left renal caliectasis, nephrolithiasis and mild left renal atrophy. 6. Small bilateral pleural effusions. Electronically signed by: Sheba Nix MD (09/18/2021 9:21 AM) [id number]
[2021-09-18 11:00] VITALS: BP 115/68
[2021-09-18 11:57] LABS: CALCIUM 8.4 mg/dL (8.5-10.1); POTASSIUM 3.6 mmol/L (3.5-5.1)
--- NOTE | 2021-09-18 12:04 | PDOC ---
[facility] PROGRESS NOTE Date of Service DOS: DATE: 09/18/21 TIME: 11:51 Chief Complaint Chief Complaint Assessment/Plan Acute appendicitis with perforation and peritonitis, abdominal pain, history of hypothyroidism and rapid heart rate -Plan history abdominal pain. Evaluated outside hospital yesterday showing ruptured appendix. Sent here for intervention -Received cefepime Flagyl outside hospital. Given Vanco Zosyn here. We will continue Zosyn just for now -POD 1 from drain placement -Diet as tolerated -Hold off on DVT prophylaxis for now encourage patient to ambulate as she could -Home meds resumed as indicated History of Present Illness History of Present Illness Patient is a 65-year-old white female presented to outside emergency room yesterday due to 5 days worsening abdominal pain. Patient reports that Saturday she started feeling very gassy in the evening the next day abdominal pain e ventually localized to the right lower quadrant. Also started having fever chills diarrhea during that time. Patient reports that she mostly slept Saturday. Pain was still present and sort of go away and come back intermittently. Reported that yesterday she also had a fair bit more vomiting. With that ongoing pain presented emergency room yesterday found to have a temperature of 102. CT scan performed showed findings indicative of ruptured appendicitis with early abscess formation. She received doses of cefepime and Flagyl there. With the findings on imaging is recommended she transferred here for surgical evaluation. I evaluated the patient this morning she was resting in bed and appears comfortable. Told me the pain was tolerable at this time. Overnight she received 2 doses of vancomycin and Zosyn. Plan to continue just Zosyn for now. She was reporting generalized unwell feeling and abdominal pain. Otherwise she is denying sort of headache vision changes chest pain shortness of breath dysuria joint pain 09/15/21 Evaluated examined at bedside. Underwent drain placement yesterday and tolerated well. When I evaluated this morning she said she was doing well pain was well controlled. She was tolerating diet. Continuing IV antibiotics for now. Will await culture results. Planning for repeat CT scan on Saturday per surgery. Plan of care discussed with bedside RN. 09/16 Patient evaluated and examined at bedside. She is doing well/actually feeling quite a bit better overall. Output from drain definitely slowing down. Continue antibiotics. Planning for CT repeat Saturday. Stop fluids patient said she is feeling little swollen. I did tell her she does not exactly need DVT prophylaxis long as she is getting up and moving around every couple of hours. 09/17:Patient evaluated and examined at bedside. She was doing well, no loose stool. No pain to complain. Repeating CT scan in the morning to see if drain can be removed. If can remove patient will likely discharge home tomorrow. Will need to be switched to oral antibiotics prior. Afebrile. WBC normalized, interval CT abdomen pelvis shows no residual abscess still appendicitis. Tolerating antibiotics well. Awaiting metabolic panel from this morning. Her pain is improved her appetite is improved and she is anxious to go home. With regard to her diarrhea she still having loose stools but retu rned negative for C. difficile. She already has plan for 2 weeks outpatient antibiotics and interval appendectomy in the next month. Awaiting surgical evaluation prior to discharge. E. coli Cipro proved sensitive and Enterobacter Cipro sensitive. Bacteroides present as well will give empiric metronidazole. Vitals/I&O Vitals/I&O: Vital Signs Date Time Temp Pulse Resp B/P (MAP) Pulse Ox O2 Delivery O2 Flow Rate FiO2 09/18/21 11:00 97.8 82 19 115/68 (84) 98 Room Air 97.8 09/17/21 23:00 2.0 I & O 09/17/21 09/17/21 09/18/21 15:00 23:00 07:00 Intake Total 100 ml 280 ml Balance 100 ml 280 ml Physical Exam General: Alert, Oriented X3, Cooperative Heart: Regular rate, Normal S1, Normal S2 Abdomen: Soft, Other (drain in place) Extremities: No clubbing, No cyanosis Skin: No rashes, No breakdown Comment Review of Relevant I have reviewed the following items marita (where applicable) has been applied. Medications: Current Medications Medications (Trade) Dose Ordered Sig/Andrea Route PRN Reason Start Time Stop Time Status Last Admin Dose Admin Hydrocortisone (Cortaid) 1 maggy TID TP 09/17/21 15:00 09/18/21 09:00 Hydroxyzine HCl (Atarax) 25 mg PRN Q6HRS PRN PO ITCHING 09/17/21 14:45 09/17/21 14:46 Iohexol (Omnipaque 300 Mg/ml) 75 ml 1X ONCE IV 09/18/21 07:30 09/18/21 07:37 DC 09/18/21 07:30 Iohexol (Omnipaque 240 Mg/ml) 50 ml 1X ONCE PO 09/18/21 07:30 09/18/21 07:37 DC 09/18/21 07:30 Justifications for Admission Other Justification LAKESHA HERNÁNDEZ MD Sep 18, 2021 12:04
[2021-09-18] MEDS ORDERED: CIPROFLOXACIN HCL 250 MG TABLET. PO SCH (13:00)
[2021-09-18] MEDS ORDERED: POTASSIUM BICARB 20 MEQ EFFERVESCENT TABLET. PO ONE (13:00)
--- NOTE | 2021-09-18 13:50 | PDOC ---
SURGICAL PROGRESS NOTE DATE: 09/18/21 TIME: 13:49 Subjective no significant pain still with loose stool eating Vital Signs Vital Signs Date Time Temp Pulse Resp B/P (MAP) Pulse Ox O2 Delivery O2 Flow Rate FiO2 09/18/21 11:00 97.8 82 19 115/68 (84) 98 Room Air 97.8 09/17/21 23:00 2.0 I&O Intake and Output 09/18/21 07:00 Intake Total 380 ml Balance 380 ml Intake Oral 180 ml IV Total 200 ml General: Alert, Oriented X3, Cooperative Abdomen: Soft, Other (ND, NTTP, drain purulent drainage) Labs Laboratory Tests Test 09/16/21 14:30 09/17/21 06:30 09/18/21 11:20 Clostridium difficile Toxin (PCR) Negative (NEGATIVE) White Blood Count 9.7 x10^3/uL (4.0-11.0) Red Blood Count 3.45 x10^6/uL (3.50-5.40) Hemoglobin 10.2 g/dL (12.0-15.5) Hematocrit 30.6 % (36.0-47.0) Mean Corpuscular Volume 89 fL (79-100) Mean Corpuscular Hemoglobin 30 pg (25-35) Mean Corpuscular Hemoglobin Concent 33 g/dL (31-37) Red Cell Distribution Width 13.7 % (11.5-14.5) Platelet Count 287 x10^3/uL (140-400) Neutrophils (%) (Auto) 78 % (31-73) Lymphocytes (%) (Auto) 11 % (24-48) Monocytes (%) (Auto) 10 % (0-9) Eosinophils (%) (Auto) 1 % (0-3) Basophils (%) (Auto) 0 % (0-3) Neutrophils # (Auto) 7.6 x10^3/uL (1.8-7.7) Lymphocytes # (Auto) 1.0 x10^3/uL (1.0-4.8) Monocytes # (Auto) 1.0 x10^3/uL (0.0-1.1) Eosinophils # (Auto) 0.0 x10^3/uL (0.0-0.7) Basophils # (Auto) 0.0 x10^3/uL (0.0-0.2) Sodium Level 142 mmol/L (136-145) 142 mmol/L (136-145) Potassium Level 2.8 mmol/L (3.5-5.1) 3.6 mmol/L (3.5-5.1) Chloride Level 107 mmol/L (98-107) 106 mmol/L (98-107) Carbon Dioxide Level 25 mmol/L (21-32) 28 mmol/L (21-32) Anion Gap 10 (6-14) 8 (6-14) Blood Urea Nitrogen 6 mg/dL (7-20) 4 mg/dL (7-20) Creatinine 0.9 mg/dL (0.6-1.0) 1.0 mg/dL (0.6-1.0) Estimated GFR (Cockcroft-Gault) 63.2 56.0 Glucose Level 83 mg/dL (70-99) 88 mg/dL (70-99) Calcium Level 7.9 mg/dL (8.5-10.1) 8.4 mg/dL (8.5-10.1) Laboratory Tests Test 09/18/21 11:20 Sodium Level 142 mmol/L (136-145) Potassium Level 3.6 mmol/L (3.5-5.1) Chloride Level 106 mmol/L (98-107) Carbon Dioxide Level 28 mmol/L (21-32) Anion Gap 8 (6-14) Blood Urea Nitrogen 4 mg/dL (7-20) Creatinine 1.0 mg/dL (0.6-1.0) Estimated GFR (Cockcroft-Gault) 56.0 Glucose Level 88 mg/dL (70-99) Calcium Level 8.4 mg/dL (8.5-10.1) Problem List CT reviewed, drain has more drainage today, ok to dc home, leave drain in place and FU 1 week Justicifation of Admission Dx: Justifications for Admission: Justification of Admission Dx: N/A NELA MARIN OFFICE RUNNER Sep 18, 2021 13:50
[2021-09-18] MEDS ORDERED: CIPR250T30 PO (13:52)
[2021-09-18] MEDS ORDERED: METR-34 PO (13:52)
--- NOTE | 2021-09-18 13:55 | PDOC3 ---
Discharge Summary Visit Information Date of Admission: Sep 13, 2021 Date of Discharge: Sep 18, 2021 Admitting Diagnosis: Ruptured appendix Final Diagnosis Abdominal abscess Brief Hospital Course Allergies Allergies Coded Allergies Type Severity Reaction Last Updated Verified No Known Drug Allergies 09/13/21 No Vital Signs Vital Signs Date Time Temp Pulse Resp B/P (MAP) Pulse Ox O2 Delivery O2 Flow Rate FiO2 09/18/21 11:00 97.8 82 19 115/68 (84) 98 Room Air 97.8 09/17/21 23:00 2.0 Lab Results Laboratory Tests Test 09/16/21 14:30 09/17/21 06:30 09/18/21 11:20 Clostridium difficile Toxin (PCR) Negative (NEGATIVE) White Blood Count 9.7 x10^3/uL (4.0-11.0) Red Blood Count 3.45 x10^6/uL (3.50-5.40) Hemoglobin 10.2 g/dL (12.0-15.5) Hematocrit 30.6 % (36.0-47.0) Mean Corpuscular Volume 89 fL (79-100) Mean Corpuscular Hemoglobin 30 pg (25-35) Mean Corpuscular Hemoglobin Concent 33 g/dL (31-37) Red Cell Distribution Width 13.7 % (11.5-14.5) Platelet Count 287 x10^3/uL (140-400) Neutrophils (%) (Auto) 78 % (31-73) Lymphocytes (%) (Auto) 11 % (24-48) Monocytes (%) (Auto) 10 % (0-9) Eosinophils (%) (Auto) 1 % (0-3) Basophils (%) (Auto) 0 % (0-3) Neutrophils # (Auto) 7.6 x10^3/uL (1.8-7.7) Lymphocytes # (Auto) 1.0 x10^3/uL (1.0-4.8) Monocytes # (Auto) 1.0 x10^3/uL (0.0-1.1) Eosinophils # (Auto) 0.0 x10^3/uL (0.0-0.7) Basophils # (Auto) 0.0 x10^3/uL (0.0-0.2) Sodium Level 142 mmol/L (136-145) 142 mmol/L (136-145) Potassium Level 2.8 mmol/L (3.5-5.1) 3.6 mmol/L (3.5-5.1) Chloride Level 107 mmol/L (98-107) 106 mmol/L (98-107) Carbon Dioxide Level 25 mmol/L (21-32) 28 mmol/L (21-32) Anion Gap 10 (6-14) 8 (6-14) Blood Urea Nitrogen 6 mg/dL (7-20) 4 mg/dL (7-20) Creatinine 0.9 mg/dL (0.6-1.0) 1.0 mg/dL (0.6-1.0) Estimated GFR (Cockcroft-Gault) 63.2 56.0 Glucose Level 83 mg/dL (70-99) 88 mg/dL (70-99) Calcium Level 7.9 mg/dL (8.5-10.1) 8.4 mg/dL (8.5-10.1) Laboratory Tests Test 09/18/21 11:20 Sodium Level 142 mmol/L (136-145) Potassium Level 3.6 mmol/L (3.5-5.1) Chloride Level 106 mmol/L (98-107) Carbon Dioxide Level 28 mmol/L (21-32) Anion Gap 8 (6-14) Blood Urea Nitrogen 4 mg/dL (7-20) Creatinine 1.0 mg/dL (0.6-1.0) Estimated GFR (Cockcroft-Gault) 56.0 Glucose Level 88 mg/dL (70-99) Calcium Level 8.4 mg/dL (8.5-10.1) Brief Hospital Course Patient is a 65-year-old white female presented to outside emergency room yesterday due to 5 days worsening abdominal pain. Patient reports that Saturday she started feeling very gassy in the evening the next day abdominal pain eventually localized to the right lower quadrant. Also started having fever chills diarrhea during that time. Patient reports that she mostly slept Saturday. Pain was still present and sort of go away and come back intermittently. Reported that yesterday she also had a fair bit more vomiting. With that ongoing pain presented emergency room yesterday found to have a temperature of 102. CT scan performed showed findings indicative of ruptured appendicitis with early abscess formation. She received doses of cefepime and Flagyl there. With the findings on imaging is recommended she transferred here for surgical evaluation. I evaluated the patient this morning she was resting in bed and appears comfortable. Told me the pain was tolerable at this time. Overnight she received 2 doses of vancomycin and Zosyn. Plan to continue just Zosyn for now. She was reporting generalized unwell feeling and abdominal pain. Otherwise she is denying sort of headache vision changes chest pain shortness of breath dysuria joint pain 09/15/21 Evaluated examined at bedside. Underwent drain placement yesterday and tolerated well. When I evaluated this morning she said she was doing well pain was well controlled. She was tolerating diet. Continuing IV antibiotics for now. Will await culture results. Planning for repeat CT scan on Saturday per surgery. Plan of care discussed with bedside RN. 09/16 Patient evaluated and examined at bedside. She is doing well/actually feeling quite a bit better overall. Output from drain definitely slowing down. Continue antibiotics. Planning for CT repeat Saturday. Stop fluids patient said she is feeling little swollen. I did tell her she does not exactly need DVT pro phylaxis long as she is getting up and moving around every couple of hours. 09/17:Patient evaluated and examined at bedside. She was doing well, no loose stool. No pain to complain. Repeating CT scan in the morning to see if drain can be removed. If can remove patient will likely discharge home tomorrow. Will need to be switched to oral antibiotics prior. Afebrile. WBC normalized, interval CT abdomen pelvis shows no residual abscess still appendicitis. Tolerating antibiotics well. Awaiting metabolic panel from this morning. Her pain is improved her appetite is improved and she is anxious to go home. With regard to her diarrhea she still having loose stools but returned negative for C. difficile. She already has plan for 2 weeks outpatient antibiotics and interval appendectomy in the next month. Awaiting surgical evaluation prior to discharge. E. coli Cipro proved sensitive and Enterobacter Cipro sensitive. Bacteroides present as well will give empiric metronidazole. Consults: General surgery Problem list: Acute appendicitis with perforation and peritonitis, abdominal pain, history of hypothyroidism and rapid heart rate Greater than 30 minutes spent on d/c home with outpatient surgical follow up for interval appendectomy Discharge Information Condition at Discharge: Improved Follow Up: Weeks (1) Disposition/Orders: D/C to Home Scheduled Aspirin (Aspirin) 81 Mg Tab.chew, 1 TAB PO DAILY for cardiac health, #30 Ref 3 (Reported) Entered as Reported by: SILAS GARCÍA RN on 09/13/212352 Last Taken: Unknown Dose on 09/13/21799 Last Action: HELD on 09/14/21843 by LAKESHA MENJIVAR MD Calcium Carbonate (Calcium) 500 Mg Tablet, 600 MG PO BID for supplement, (Reported) Entered as Reported by: SILAS GARCÍA RN on 09/13/212352 Last Taken: Unknown Dose on 09/13/21799 Last Action: HELD on 09/14/21843 by LAKESHA MENJIVAR MD Cimetidine (Heartburn Relief) 200 Mg Tablet, 400 MG PO BID for GERD, (Reported) Entered as Reported by: SILAS GARCÍA RN on 09/13/212352 Last Taken: Unknown Dose on 09/13/21799 Last Action: Converted on 09/14/21843 by LAKESHA MENJIVAR MD Ciprofloxacin Hcl (Cipro) 250 Mg Tablet, 500 MG PO BID for Abdominal abscess for 10 Days, #40 Prescribed by: LAKESHA HERNÁNDEZ MD on 09/18/21 1352 Levothyroxine Sodium (Levothyroxine Sodium) 100 Mcg Tablet, 1 TAB PO DAILY for hypothyroid, #30 Ref 5 (Reported) Entered as Reported by: SILAS GARCÍA RN on 09/13/212352 Last Taken: Unknown Dose on 09/13/21699 Last Action: Continued on 843 by LAKESHA MENJIVAR MD Magnesium Oxide (Magnesium) 400 Mg Capsule, 1 CAP PO DAILY for supplement for 30 Days, #30 Ref 0 (Reported) Entered as Reported by: SILAS GARCÍA RN on 09/13/212352 Last Action: Converted on 09/15/21954 by LAKESHA MENJIVAR MD Metoprolol Tartrate (Metoprolol Tartrate) 25 Mg Tablet, 0.5 TAB PO BID for tachycardia, #180 Ref 1 (Reported) Entered as Reported by: SILAS GARCÍA RN on 09/13/212352 Last Taken: Unknown Dose on 09/13/21799 Last Action: Continued on 09/15/21954 by LAKESHA MENJIVAR MD Metronidazole (Metronidazole) 500 Mg Tablet, 500 MG PO Q8HRS for Abdominal abscess for 10 Days, #30 Prescribed by: ALKESHA HERNÁNDEZ MD on 09/18/21 1352 Multivit-Min/Ferrous Sulfate (One Daily Multivit-Mineral Tab) 4.5 Mg Tablet, 4.5 MG PO DAILY for supplement, (Reported) Entered as Reported by: SILAS GARCÍA RN on 09/13/21 1952 Last Taken: Unknown Dose on 09/12/21 1700 Last Action: HELD on 09/14/21 0844 by LAKESHA MENJIVAR MD Justicifation of Admission Dx: Justifications for Admission: Justification of Admission Dx: N/A LAKESHA HERNÁNDEZ MD Sep 18, 2021 13:55
[2021-09-18] MEDS ORDERED: metroNIDAZOLE 500 MG TABLET PO SCH (14:00)
[2021-09-18 15:00] VITALS: BP 119/66
--- NOTE | 2021-09-18 16:56 | NUR ---
Patient discharged home to per w/c. Patient verbalized understanding of discharge instructions, including, but not limited to diet, medications, follow up, drain/site care, activity, bathing, calling dr for concerns. Prescriptions were sent electronically to patient pharmacy.
--- NOTE | 2021-10-02 09:41 | RAD ---
CT-guided drainage, right lower quadrant pelvic abscess September 14, 2021 INDICATION: Periappendiceal abscess Consent: The procedure was explained in its entirety to the patient or the patients designated repres entative by a member of the treatment team, including a discussion of the risks, benefits and commonl y accepted alternatives to the procedure, as well as the expected consequences of no therapy whatsoev er. Discussion of the risks included, but was not limited to, those that are most frequent and thos e that are rare but possibly severe or life-threatening, as well as the possibility of unforeseen com plications. The right lower quadrant was prepped and draped using sterile barrier technique. 1% lidocaine was adm inistered for local anesthesia. Under intermittent CT guidance a 17-gauge needle was advanced into a pericecal abscess secondary to ruptured appendicitis. A guidewire was advanced into the collection ov er which following dilatation 10 [place] drain was placed. The catheter was secured in place. Sterile dressings were applied. No immediate complications were identified. Sedation: The procedure was performed under conscious sedation including continuous cardiopulmonary m onitoring via a dedicated sedation nurse. [id number] sedation time:: 30 minutes IMPRESSION: CT-guided drain placement, right lower quadrant periappendiceal abscess CT DOSING PQRS STATEMENT: One or more of the following individualized dose reduction techniques were utilized for this examinat ion: 1. Automated exposure control 2. Adjustment of the mA and/or kV according to patient size 3. Use of iterative reconstruction technique Electronically signed by: Jorgito Ko MD (10/02/2021 9:38 AM) [id number]
== END 2021-09-18 16:56 | disposition home or self-care (01) | DRG 373 ==
LOC: 5 NORTH 18:42
PROVIDERS: ADMIT Internal Medicine; ATTEND Internal Medicine
DX: K35.33 Acute appendicitis with perforation, localized peritonitis, and gangrene, with abscess (principal); Z90.710 Acquired absence of both cervix and uterus; E03.9 Hypothyroidism, unspecified
CPT/HCPCS: 36415; 49406; 74177; 80048; 85007; 85025; 87071; 87075; 87076; 87077; 87186; 87493; 90471; 90686; 99152; 99153; C1892; J1650; J2250; J2270; J2543; J3010; J3370; J3490; J7030; J7040; J7050; Q9966; Q9967; G0378

== ENCOUNTER 2021-10-31 11:34 | Day surgery (SDC) | payer BC ==
[~2021-10-31] VITALS: Ht 172.7 cm; Wt 79.0 kg
[~2021-10-31 11:34] MED LIST: ACETAMINOPHEN 500 MG TABLET PO PRN; ASPI-630 PO; CALC500T30 PO; CIME200T18 PO; CIPR250T30 PO; HYDROmorphone 2 MG/ML VIAL IVP PRN; IV RINGERS,LACTATED 1000ML 1,000 ML IV SCH; LEVO100T5 PO; MAGN400C PO; METO25TA4 PO; METR-34 PO; MORPHINE SULFATE 2 MG/ML INJ. IVP PRN; MULT-477 PO; PROCHLORPERAZINE 10 MG/2 ML VIAL. IVP PRN; ceFAZolin SODIUM IV Push 1 GM VIAL. IVP PRN; fentaNYL PF VIAL 100 MCG/2 ML VIAL IVP PRN
[2021-10-31] MEDS ORDERED: PROPOFOL 10 MG/ML (20ML) VIAL. IV ONE (11:46)
[2021-10-31] MEDS ORDERED: LIDOCAINE 1% PF 5 ML VIAL. ONE (11:47)
[2021-10-31] MEDS ORDERED: fentaNYL PF VIAL 100 MCG/2 ML VIAL ONE (11:47)
[2021-10-31] MEDS ORDERED: GLYCOPYRROLATE 1 MG/5 ML VIAL. ONE ×2 (11:56→13:19)
[2021-10-31 12:00] VITALS: BP 113/64
[2021-10-31] MEDS ORDERED: NEOSTIGMINE METHYLSULFATE 5 MG/5 ML SYRINGE. ONE (13:18)
[2021-10-31] MEDS ORDERED: ONDANSETRON PF 4 MG/2 ML VIAL. ONE (13:18)
[2021-10-31] MEDS ORDERED: BUPIVACAINE-EPI 0.25% 30 ML VIAL KIT. ONE (13:25)
[2021-10-31] MEDS ORDERED: DEXAMETHASONE SOD PHOS 4 MG/ML VIAL ONE (14:00)
--- NOTE | 2021-10-31 14:29 | PDOC4 ---
Operative Note Operative Note Date: October [id number] at 1430 Preoperative diagnosis: Appendicitis Postoperative diagnosis: Same Procedure: Laparoscopic appendectomy Surgeon: Dany Specimen: Appendix Dictation: Patient is a 66-year-old female who 6 weeks ago had acute appendicitis with phlegmon and was treated with antibiotics subsequently has recovered is now following up for a interval appendectomy. The procedure of appendectomy was explained to the patient detail risk benefits were also discussed including bleeding infection injury to intra-abdominal contents possible necessitating further open operations alternatives to this procedure also discussed with the patient who seemed to understand and gave a verbal written consent to have procedure performed. Patient was taken to the operating room placed in supine position general anesthesia was initiated once patient was sleeping intubated her abdomen was prepped and draped usual sterile fashion using ChloraPrep. An area just below the umbilicus injected quarter percent Marcaine with epinephrine incision was made 11 blade scalpel and varies needle w as placed within the abdomen creating pneumoperitoneum once this was complete 12 mm port was placed in a 5 mm camera was placed within the abdomen which was inspected the appendix was noted in the right lower quadrant no other abnormalities were noted. 5 mm port was placed low in the midline and a 5 mm port was placed in the right midabdomen all on direct visualization. The appen neisha was grasped retracted towards anterior abdominal wall a window was propagated the base of the appendix through the mesoappendix with a [place] dissector. Once this was complete a Endo WINTER stapler was used to staple and transect the base of the appendix a second load was used to staple and transect the mesoappendix the appendix was then placed in Endo Catch bag moving the umbi licus right lower quadrant was irrigated suctioned dry hemostasis deemed be appropriate the pneumoperitoneum was reduced all ports were removed the fascial defect at the umbilicus was closed with a [id number] 0 Vicryl suture and the skin was reapproximated all port sites for subcuticular Monocryl Mastisol Steri-Strips and island dressings were applied. Patient was awakened extubated in the operating room taken to recovery in stable condition all sponge instrument needle counts listed as correct estimated blood loss 10 mL JAE FLOWER MD Oct 31, 2021 14:29
[2021-10-31] MEDS ORDERED: OXYC-325 PO (14:32)
--- NOTE | 2021-10-31 14:37 | DISCH ---
DISCHARGE INSTRUCTIONS Condition on Discharge Condition on Discharge: Stable Activity After Discharge Activity Instructions for Disc: Avoid exertion Other activity instructions: No lifting more than 20 pounds for 2 weeks Diet after Discharge Diet after Discharge: Low Fat Wound Incision Care Other wound/incision instructi: May shower in 24 hours Contacting the after DC Call your doctor for: If your condition worsens Follow-Up Follow up with: Dr. Flower in 2 weeks JAE FLOWER MD Oct 31, 2021 14:37
[2021-10-31] MEDS ORDERED: oxyCODONE/APAP 5/325 1 TAB TABLET PO ONE (15:00)
[2021-10-31 15:32] VITALS: BP 113/56
== END 2021-10-31 15:56 | disposition home or self-care (01) ==
LOC: SURG 11:34
PROVIDERS: ATTEND Surgery
DX: K35.80 Unspecified acute appendicitis (principal); K21.9 Gastro-esophageal reflux disease without esophagitis; E03.9 Hypothyroidism, unspecified; F41.9 Anxiety disorder, unspecified; Z79.82 Long term (current) use of aspirin; Z79.899 Other long term (current) drug therapy; Z90.710 Acquired absence of both cervix and uterus; Z98.890 Other specified postprocedural states; Z88.8 Allergy status to other drugs, medicaments and biological substances
CPT/HCPCS: 44970; A4314; A4930; J1100; J2405; J2704; J2710; J3010; J3490; J0690